=== PATIENT | female | born 1990 | race Caucasian/White ===

== ENCOUNTER 2020-08-04 05:45 | Inpatient (IN) | payer OTHER ==
[2020-08-04] MEDS ORDERED: CITRIC ACID/SODIUM CITRATE 30 ML UNIT-DOSE CUP PO ONE (06:31)
[2020-08-04] MEDS ORDERED: ELECTROLYTE-148 SOLN 1,000 ML IV SCH ×2 (06:45)
[2020-08-04] MEDS ORDERED: OXYTOCIN 20 UNITS in 0.9% NS 20 UNIT/1,000 ML INFUS.BAG IV ONE ×2 (07:15→09:14)
[2020-08-04] MEDS ORDERED: morphine SULFATE/PF 0.5 MG/ML (2cc Syringe - QUVA) ONE (07:19)
[2020-08-04] MEDS ORDERED: ceFAZolin SODIUM 1 GM VIAL ONE ×2 (07:25)
[2020-08-04 07:35] LABS: INR 0.85 (0.83-1.09); PROTHROMBIN TIME (PATIENT) 10.3 SEC (9.7-13.0)
[2020-08-04] MEDS ORDERED: ONDANSETRON 4 MG/2 ML VIAL ONE (07:41)
[2020-08-04] MEDS ORDERED: DEXAMETHASONE SOD PHOSPHATE 4 MG/1 ML VIAL ONE (07:41)
[2020-08-04] MEDS ORDERED: MIDAZOLAM HCL 2 MG/2 ML SINGLE DOSE VIAL ONE (07:48)
[2020-08-04 07:59] LABS: CALCIUM 8.2 mg/dL (8.5-10.1)
[2020-08-04 08:00] LABS: BLOOD UREA NITROGEN 7.7 mg/dL (7-18)
[2020-08-04 08:03] LABS: CREATININE 0.4 mg/dL (0.55-1.3)
[2020-08-04] MEDS ORDERED: ONDANSETRON 4 MG/2 ML VIAL IVPUSH PRN (08:19)
[2020-08-04] MEDS ORDERED: ACETAMINOPHEN 1000 MG/100 ML VIAL (NON FORMULARY) IVPB PRN (08:20)
[2020-08-04 08:25] LABS: BASO % 0.4 % (0-2.0); EOS % 0.7 % (0-4.5); HEMATOCRIT 37.1 % (32.4-45.2); HEMOGLOBIN 12.4 GM/dL (10.7-15.3); MCHC 33.5 g/dl (32.0-36.0); MEAN CELL VOLUME 86.4 fl (80-96); MEAN PLT VOLUME 10.5 fl (7.5-11.1); MONO % 7.9 % (3.8-10.2); PLATELET COUNT 175 K/MM3 (134-434); RDW 13.5 % (11.6-15.6); WHITE BLOOD COUNT 4.4 K/mm3 (4.0-10.0)
[2020-08-04] MEDS ORDERED: METHYLERGONOVINE MALEATE 0.2 MG/1 ML AMP IM PRN (08:28)
[2020-08-04] MEDS ORDERED: IBUPROFEN 800 MG/8 ML IJ IVPB PRN (08:28)
[2020-08-04] MEDS ORDERED: oxyCODONE HCL 5 MG TABLET PO PRN (08:28)
[2020-08-04] MEDS ORDERED: BENZOCAINE 20% 57 GM BOTTLE TP PRN (08:28)
[2020-08-04] MEDS ORDERED: OXYTOCIN 20 UNITS in 0.9% NS 20 UNIT/1,000 ML INFUS.BAG IV SCH (08:30)
[2020-08-04 08:42] VITALS: BMI 28.5
[2020-08-04] MEDS: FERROUS SO4 325 MG TABLET (FP) PO SCH (10:13)
[2020-08-04] MEDS: PRENATAL VITAMINS W/ FOLIC ACID TABLET (FP) PO SCH (10:14)
[2020-08-04 11:23] LABS: HIV INTERPRETATION NEGATIVE (NEGATIVE)
[2020-08-04] MEDS ORDERED: ACETAMINOPHEN INJECTION 100 ML IVPB ONE (13:38)
[2020-08-05] MEDS: FERROUS SO4 325 MG TABLET (FP) PO SCH ×3 (00:12→21:24)
[2020-08-05 07:09] LABS: BASO % 0.3 % (0-2.0); EOS % 0.3 % (0-4.5); HEMOGLOBIN 10.7 GM/dL (10.7-15.3); LYMPH % 22.1 % (8-40); MCH 29.2 pg (25.7-33.7); MCHC 33.5 g/dl (32.0-36.0); MEAN CELL VOLUME 87.2 fl (80-96); MEAN PLT VOLUME 10.7 fl (7.5-11.1); MONO % 8.1 % (3.8-10.2); NEUT % 69.2 % (42.8-82.8); PLATELET COUNT 138 K/MM3 (134-434); RBC 3.67 M/mm3 (3.60-5.2); RDW 13.4 % (11.6-15.6); WHITE BLOOD COUNT 5.7 K/mm3 (4.0-10.0)
[2020-08-05] MEDS: IBUPROFEN 600 MG TABLET (FP) PO PRN ×3 (08:04→21:25)
[2020-08-05] MEDS: ACETAMINOPHEN 325 MG TABLET (FP) PO PRN ×3 (08:06→21:24)
[2020-08-05] MEDS: SIMETHICONE 80 MG TAB.CHEW (FP) PO PRN ×3 (08:06→21:24)
[2020-08-05] MEDS ORDERED: BISACODYL 10 MG SUPP.RECT RC PRN (08:28)
[2020-08-05] MEDS: PRENATAL VITAMINS W/ FOLIC ACID TABLET (FP) PO SCH (09:22)
[2020-08-05] MEDS ORDERED: FLU VACCINE (FLULAVAL) PF 60 MCG/0.5 ML SYRINGE 2020-2021 IM ONE (10:00)
[2020-08-05] MEDS ORDERED: DIPHTH,PERTUSS(ACELL),TET 0.5 ML DISP.SYRIN IM ONE (10:00)
[2020-08-05] MEDS: SENNOSIDES/DOCUSATE COMBO (SENNA PLUS) TABLET (UD) PO PRN (21:27)
[2020-08-06] MEDS: IBUPROFEN 600 MG TABLET (FP) PO PRN ×3 (07:34→19:26)
[2020-08-06] MEDS: SIMETHICONE 80 MG TAB.CHEW (FP) PO PRN ×3 (07:35→19:25)
[2020-08-06] MEDS: ACETAMINOPHEN 325 MG TABLET (FP) PO PRN ×3 (07:35→19:26)
[2020-08-06] MEDS: FERROUS SO4 325 MG TABLET (FP) PO SCH ×2 (10:23→21:54)
[2020-08-06] MEDS: PRENATAL VITAMINS W/ FOLIC ACID TABLET (FP) PO SCH (10:23)
[2020-08-06] MEDS: SENNOSIDES/DOCUSATE COMBO (SENNA PLUS) TABLET (UD) PO PRN (19:25)
[2020-08-07] MEDS: SIMETHICONE 80 MG TAB.CHEW (FP) PO PRN (02:40)
[2020-08-07] MEDS: IBUPROFEN 600 MG TABLET (FP) PO PRN (02:40)
[2020-08-07] MEDS: ACETAMINOPHEN 325 MG TABLET (FP) PO PRN ×2 (02:41→10:13)
[2020-08-07 07:22] LABS: BASO % 0.4 % (0-2.0); EOS % 1.3 % (0-4.5); HEMATOCRIT 32.7 % (32.4-45.2); HEMOGLOBIN 10.9 GM/dL (10.7-15.3); LYMPH % 19.5 % (8-40); MCH 29.1 pg (25.7-33.7); MCHC 33.4 g/dl (32.0-36.0); MEAN CELL VOLUME 87.1 fl (80-96); MEAN PLT VOLUME 10.8 fl (7.5-11.1); MONO % 7.8 % (3.8-10.2); PLATELET COUNT 174 K/MM3 (134-434); RBC 3.75 M/mm3 (3.60-5.2); RDW 13.8 % (11.6-15.6)
[2020-08-07] MEDS: PRENATAL VITAMINS W/ FOLIC ACID TABLET (FP) PO SCH (10:19)
[2020-08-07] MEDS: FERROUS SO4 325 MG TABLET (FP) PO SCH (10:19)
[2020-08-07 12:49] VITALS: BP 136/73; PULSE 79; TEMP 98
== END 2020-08-07 17:10 | disposition home or self-care (01) | DRG 540 ==
LOC: JDEL 05:45 → JLDR 06:20 → J3W 14:45
PROVIDERS: ADMIT Obstetrics & Gynecology; ATTEND Obstetrics & Gynecology
PROC: 10D00Z1 Extraction of Products of Conception, Low, Open Approach (ICD-10-PCS; principal; 2020-08-04)
DX: O32.1XX0 Maternal care for breech presentation, not applicable or unspecified (principal); O24.420 Gestational diabetes mellitus in childbirth, diet controlled; O42.02 Full-term premature rupture of membranes, onset of labor within 24 hours of rupture; Z3A.37 37 weeks gestation of pregnancy; Z37.0 Single live birth
CPT/HCPCS: 36415; 80048; 85025; 85610; 85730; 86780; 86850; 86900; 86901; 87389; 88307-TC; 90715; C9803; G0008; J0131; Q2036; U0003; U0005

== ENCOUNTER 2023-11-15 10:49 | Emergency (ER) | payer OTHER ==
[2023-11-15 10:56] VITALS: BMI 24.5
[2023-11-15 14:14] VITALS: BP 112/57; PULSE 82; RESP 20; TEMP 98.2
== END 2023-11-15 15:48 | disposition home or self-care (01) ==
LOC: MERGE 10:49 → JERFT 10:49
DX: N63.31 Unspecified lump in axillary tail of the right breast (principal); N64.4 Mastodynia
CPT/HCPCS: 76642-TC-RT; 99284-25